=== PATIENT | male | born 1970 | race African-American/Black ===

== ENCOUNTER 2025-05-19 02:33 | Emergency (ER) | payer BC ==
[~2025-05-19] VITALS: Ht 185.4 cm; Wt 99.8 kg
[2025-05-19 03:21] LABS: PLATELET COUNT (AUTO) 220 K/uL (150-450); RED BLOOD CELL COUNT(AUTO) 5.39 MIL/uL (4.5-6.0); RED CELL DISTRIBUTION WIDTH 14.2 % (11.5-15.0); WHITE BLOOD COUNT (AUTO) 6.4 K/uL (4.3-11.0)
[2025-05-19 03:27] LABS: CALCIUM, SERUM 9.3 mg/dL (8.5-10.1); CREATININE 1.3 mg/dL (0.6-1.3); SODIUM SERUM 142 mmol/L (136-145); UREA NITROGEN, BLOOD 18 mg/dL (7-18)
[2025-05-19] MEDS ORDERED: IV NS 0.9% 250 ML IV ONE (03:40)
[2025-05-19] MEDS ORDERED: IOHEXOL-350 100 ML VIAL IV ONE (03:40)
[2025-05-19] MEDS ORDERED: CT SWABBABLE VALVE TRANS SET 1 EA INFUS.SET MC ONE (03:40)
[2025-05-19 03:41] LABS: ASPARTATE AMINOTRANSFERASE 23 U/L (15-37); NT-PRO BNP 34 pg/mL (0-125); TOTAL PROTEIN, SERUM 7.7 g/dL (6.4-8.2)
[2025-05-19 03:42] LABS: ALCOHOL, BLOOD < 3 mg/dL (0-10)
[2025-05-19] MEDS ORDERED: AMLO5TAB4 PO (10:03)
[2025-05-19] MEDS ORDERED: ASPI-1420 PO (10:12)
[2025-05-19 11:53] VITALS: BP 140/88; TEMP 97.9; O2SAT 99
== END 2025-05-19 11:56 | disposition home or self-care (01) ==
LOC: ER 02:40
DX: G45.9 Transient cerebral ischemic attack, unspecified (principal); I10 Essential (primary) hypertension; Z79.82 Long term (current) use of aspirin; Z79.899 Other long term (current) drug therapy; Z90.89 Acquired absence of other organs; Z60.2 Problems related to living alone
CPT/HCPCS: 99285; 93005; 71045; 70450; 70498; 70496; 85025; 36415; 80053; 84484; 83880; 80320; J7050; Q9967; G0480